=== PATIENT | female | born 1940 | race Caucasian/White ===

== ENCOUNTER → 2016-08-21 | Outpatient (CLI) | payer MEDICARE, BC ==
[~2016-08-21] MED LIST: PHEN100T82 PO; SULF1TAB24 PO
--- NOTE | 2016-08-21 08:28 | RAD ---
EXAM: Chest, 2 views. HISTORY: Congestion. COMPARISON: 12/04/2011. FINDINGS: Frontal and lateral views of the chest are obtained. There is stable mild increased interstitial opacity without elysia congestion. There is bilateral basilar atelectasis. The heart is upper normal in size. There is no effusion or pneumothorax. IMPRESSION: No acute pulmonary finding.
== END | disposition home or self-care (01) ==
LOC: DXRADRC 07:49
PROVIDERS: ATTEND Physician Assistant Medical
DX: J02.9 Acute pharyngitis, unspecified (principal); R09.89 Other specified symptoms and signs involving the circulatory and respiratory systems
CPT/HCPCS: 71020

== ENCOUNTER → 2017-07-18 | Outpatient (CLI) | payer MEDICARE, BC ==
[~2017-07-18] MED LIST changes: +REGADENOSON 0.4 MG/5 ML DISP.SYRIN. IV ONE
--- NOTE | 2017-07-18 13:49 | RAD ---
MR#: [id number] Date of Study: 07/18/2017 Ordering Physician: GINA LICONA Referring Physician: TEDDY BARNES Tech: RT Los (R) (N) APPROVED REPORT Test Type: Pharmacological Stress Nurse/Tech: Maribell Gutierres Test Indications: Palpatations, dyspnea Cardiac History: Possible ND in 2000 Resting Heart Rate: 56 bpm Resting Blood Pressure: 150/90mmHg Pretest Chest Pain: None Pharm. Details Pharmacologic stress testing was performed using 0.4mg per 5ml of regadenoson given intravenously ove r 7-10 seconds. POST EXERCISE Max HR: 101 bpm Max Blood Pressure: 160/90mmHg Blood Pressure response to exercise: Normal Heart Rate response to exercise: Normal Chest Pain: No. Arrhythmia: No. INTERPRETATION Stress EKG Conclusion: The resting EKG shows a sinus rhythm with nonspecific ST-T wave changes. The stress EKG shows no significant changes from baseline. No EKG evidence of stressed induced ischemia. Imaging Protocol IMAGE PROTOCOL: Rest Tc-99m/stress Tc-99m 1 day Rest: Stress: Viability: Radiopharm.Tc99m ZqnznikxcHc47e Sestamibi Gkfv37rEn 33mCi Img Date 07/18/2017 07/18/2017 Inj-Img [id number]. 45min. Rest Admin Site:IV - Left AntecubitalAdministrator: RT Los (R)(N) Stress Admin Site: IV - Left AntecubitalAdministrator: RT Los (R)(N) STRESS DATA End Diast. Vol.78.0mlAv. Heart Rate78.0bpm LVEDV index BSA1.0mlCardiac Output0.1L/min End Syst. Vol.14.0mlCO Index BSA5.0L/min LVESV index BSA0.0mlMyocardial Bylt863.0g Eject. Tmkvzijr88.0% Stress Rates Pk. Fill Rate3.50EDV/secLVtime Pk. Fill 218.84msec Pk. Empty Rate4.75ESV/secLVtime Pk. Hyvlx230.72msec 1/3 Pk. Fill1.49EDV/sec Stress Scores Regional WT0.00Summed WT1.00 Regional WM0.00Summed WM0.00 LV Perfusion The stress scans show no significant defects. The rest scans show no significant defects. Nuclear imaging shows no reversible ischemia or infarct. Wall Motion Normal left ventricular systolic function with an ejection fraction of greater than 70%. LV Perf. Quant 17 Seg. SSS1.00 17 Seg. SRS6.00 17 Seg. SDS0.00 Stress Defect Extent (% LAD)0.00Rest Defect Extent (% LAD)11.30Rev. Defect Extent (% LAD)0.00 Stress Defect Extent (% LCX) 0.00Rest Defect Extent (% LCX)0.00Rev. Defect Extent (% LCX)0.00 Stress Defect Extent (% RCA)0.00Rest Defect Extent (% RCA)2.20Rev. Defect Extent (% RCA)0.00 Stress Defect Extent (% VELVET)0.20Rest Defect Extent (% VELVET)7.60Rev. Defect Extent (% VELVET)0.00 Conclusion 1. No EKG evidence of stressed induced ischemia. 2. Nuclear imaging shows no reversible ischemia or infarct. 3. Normal left ventricular systolic function with an ejection fraction of greater than 70%. 4. Low risk Lexiscan nuclear stress test. Signed by : Ronni Garcia MD Electronically Approved : 07/18/2017 13:49:44
== END | disposition home or self-care (01) ==
LOC: NM 07:37
PROVIDERS: ATTEND Internal Medicine Cardiovascular Disease
DX: R06.09 Other forms of dyspnea (principal); R00.2 Palpitations; I10 Essential (primary) hypertension; E11.9 Type 2 diabetes mellitus without complications
CPT/HCPCS: 78452; 93017; 96374; 96375; 96376; A9500; J2785

== ENCOUNTER → 2017-07-24 | Outpatient (CLI) | payer MEDICARE, BC ==
[~2017-07-24] MED LIST changes: -REGADENOSON 0.4 MG/5 ML DISP.SYRIN. IV ONE
--- NOTE | 2017-07-24 16:56 | CARD ---
MR#: [id number] Date of Study: 07/24/2017 Ordering Physician: GINA LICONA, Referring Physician: GINA LICONA Tech: Kimberly Mondragon RDCS APPROVED REPORT EXAM: Two-dimensional and M-mode echocardiogram with Doppler and color Doppler. Other Information Quality : Good INDICATION Dyspnea 2D DIMENSIONS RVDd2.7 (2.9-3.5cm)Left Atrium(2D)3.7 (1.6-4.0cm) IVSd1.0 (0.7-1.1cm)Aortic Root(2D)2.8 (2.0-3.7cm) LVDd4.3 (3.9-5.9cm)LVOT Diameter2.0 (1.8-2.4cm) PWd1.0 (0.7-1.1cm)LVDs2.0 (2.5-4.0cm) FS (%) 30.0 %SV69.3 ml LVEF(%)60.0 (>50%) Aortic Valve AoV Peak Abelardo.115.4cm/sAoV VTI22.9cm AO Peak GR.5.3mmHgLVOT Peak Abelardo.118.1cm/s LVOT VTI 23.88cmAO Mean GR.3mmHg DIONI (VMAX)3.76aq3DZH (VTI)3.36cm2 Mitral Valve MV E Cgntizlc94.4cm/sMV DECEL TBGX335vd MV A Gdvohqpk02.4cm/sE/A Ratio0.8 Pulmonary Vein S1 Vxmhjdbu42.3cm/sD2 Bzohrqds33.8cm/s LEFT VENTRICLE The left ventricle is normal size. There is borderline concentric left ventricular hypertrophy. The l eft ventricular systolic function is normal. The Ejection Fraction is 55-60%. There is normal LV segm ental wall motion. Transmitral Doppler flow pattern is Grade I-abnormal relaxation pattern. RIGHT VENTRICLE The right ventricle is normal size. The right ventricular systolic function is normal. ATRIA The left atrium size is normal. The right atrium size is normal. The interatrial septum is intact wit h no evidence for an atrial septal defect or patent foramen ovale as noted on 2-D or Doppler imaging. AORTIC VALVE The aortic valve is calcified but opens well. Doppler and Color Flow revealed no significant aortic r egurgitation. There is no significant aortic valvular stenosis. MITRAL VALVE The mitral valve is normal in structure and function. There is no evidence of mitral valve prolapse. There is no mitral valve stenosis. Doppler and Color-flow revealed trace mitral regurgitation. TRICUSPID VALVE The tricuspid valve is normal in structure and function. Doppler and Color Flow revealed no tricuspid valve regurgitation noted. There is no tricuspid valve stenosis. PULMONIC VALVE The pulmonary valve is normal in structure and function. Doppler and Color Flow revealed no pulmonic valvular regurgitation. There is no pulmonic valvular stenosis. GREAT VESSELS The aortic root is normal in size. The ascending aorta is mildly dilated at 3.7 cm. The IVC is normal in size and collapses >50% with inspiration. PERICARDIAL EFFUSION There is no evidence of significant pericardial effusion. Critical Notification Critical Value: No <Conclusion> The left ventricle is normal size. The left ventricular systolic function is normal. The Ejection Fraction is 55-60%. There is borderline concentric left ventricular hypertrophy. There is no significant aortic valvular stenosis. Doppler and Color Flow revealed no significant aortic regurgitation. Doppler and Color-flow revealed trace mitral regurgitation. Doppler and Color Flow revealed no tricuspid valve regurgitation noted. The ascending aorta is mildly dilated at 3.7 cm. Signed by : Ronni Garcia MD Electronically Approved : 07/24/2017 16:55:22
== END | disposition home or self-care (01) ==
LOC: ECHO 13:32
PROVIDERS: ATTEND Internal Medicine Cardiovascular Disease
DX: R06.09 Other forms of dyspnea (principal)
CPT/HCPCS: 93306

== ENCOUNTER → 2017-09-24 | Outpatient (CLI) | payer MEDICARE, BC ==
--- NOTE | 2017-09-24 12:00 | RAD ---
Left lower extremity venous ultrasound, 09/24/2017 : History: Left leg pain Duplex evaluation including grayscale, color flow and spectral Doppler analysis was performed. The femoral and popliteal veins show no filling defects to suggest DVT. The visualized calf veins are unremarkable. An elongated fluid collection is present in the left popliteal fossa compatible with a Nye's cyst. It measures 4.3 x 2.7 x 0.9 cm. IMPRESSION: 1. There is no sonographic evidence of deep vein thrombosis in the left lower extremity. 2. Left popliteal cyst.
== END | disposition home or self-care (01) ==
LOC: PMG 08:43
PROVIDERS: ATTEND Physician Assistant Medical
DX: M71.22 Synovial cyst of popliteal space [Baker], left knee (principal)
CPT/HCPCS: 93971

== ENCOUNTER → 2017-12-04 | Outpatient (CLI) | payer MEDICARE, BC ==
--- NOTE | 2017-12-04 16:28 | RAD ---
PQRS Compliance Statement: One or more of the following individualized dose reduction techniques were utilized for this examination: 1. Automated exposure control 2. Adjustment of the mA and/or kV according to patient size 3. Use of iterative reconstruction technique CT ABDOMEN PELVIS WO CONTRAST Clinical Indication: LLQ abdomen pain x 1 month, patient fell September 2017 with posterior pelvic pain, patient states it feels like her tailbone is constantly sore. Hx Hysterectomy Comparison: CT abdomen and pelvis without contrast, November 03, 2013. Technique: Helical CT imaging of the abdomen and pelvis is performed without IV or oral contrast. Findings: Evaluation of solid organs and bowel is limited without oral and IV contrast, decreasing sensitivity for detection of pathology. Mild scarring or atelectasis in the posterior lower lobes bilaterally. Cardiac size normal. Tiny hiatal hernia. Calcified granulomas in the spleen. The liver, gallbladder, pancreas, adrenal glands, abdominal aorta caliber are normal. Moderate atherosclerotic calcification of the abdominal aorta. There is no hydronephrosis. Stomach unremarkable. No dilated small bowel. Moderate sigmoid colon diverticulosis. There is moderate stool in the colon. Appendix is not identified. No secondary signs of appendicitis. No abdominal adenopathy or free fluid. Urinary bladder is mostly decompressed accentuating the wall thickness. Uterus atrophic or surgically absent. No pelvic free fluid. Mild grade 1 retrolisthesis of L3 on L4 and L2 on L3 and L1 on L2. Vacuum disc phenomenon L4/L5. IMPRESSION: 1. Moderate sigmoid colon diverticulosis without diverticulitis. 2. Moderate colon stool volume. Correlate for constipation. 3. Urinary bladder is mostly decompressed accentuating the wall thickness. Suggest correlation with urinalysis to exclude cystitis. Electronically signed by: Rodo Harmon MD (12/04/2017 4:24 PM) [place] [id number]
== END | disposition home or self-care (01) ==
LOC: CT 14:28
PROVIDERS: ATTEND Physician Assistant Medical
DX: K57.30 Diverticulosis of large intestine without perforation or abscess without bleeding (principal); I70.0 Atherosclerosis of aorta; K44.9 Diaphragmatic hernia without obstruction or gangrene; D73.89 Other diseases of spleen
CPT/HCPCS: 74176

== ENCOUNTER → 2018-10-29 | Outpatient (CLI) | payer MEDICARE, BC ==
--- NOTE | 2018-10-29 12:43 | CARD ---
MR#: [id number] Date of Study: 10/29/2018 Ordering Physician: GINA LICONA, Referring Physician: GINA LICONA, Tech: Yohana Hebert APPROVED REPORT EXAM: Two-dimensional and M-mode echocardiogram with Doppler and color Doppler. Other Information Quality : AverageHR: 61bpm Rhythm : NSRTechnically limited study due to body habitus. INDICATION Atrial Fibrillation RISK FACTORS Hypertension Hyperlipidemia Diabetes 2D DIMENSIONS RVDd2.8 (2.9-3.5cm)Left Atrium(2D)3.8 (1.6-4.0cm) IVSd1.1 (0.7-1.1cm)Aortic Root(2D)2.8 (2.0-3.7cm) LVDd5.0 (3.9-5.9cm)LVOT Diameter2.0 (1.8-2.4cm) PWd1.1 (0.7-1.1cm)LVDs2.8 (2.5-4.0cm) FS (%) 43.0 %SV85.6 ml LVEF(%)73.9 (>50%) Aortic Valve AoV Peak Abelardo.110.6cm/sAoV VTI25.1cm AO Peak GR.4.9mmHgLVOT Peak Abelardo.87.7cm/s LVOT VTI 22.01cmAO Mean GR.2mmHg DIONI (VMAX)2.98rn1AFI (VTI)2.77cm2 Mitral Valve MV E Rgcoedcg93.5cm/sMV DECEL [id number] MV A Hltwahzg24.4cm/sE/A Ratio1.2 Pulmonary Valve PV Peak Qqjktmvt61.0cm/sPV Peak Grad.2mmHg Tricuspid Valve TR P. Eoilntld362sa/sRAP SGNEUARE9qqXq TR Peak Gr.19wyFwVBVR70xrSc LEFT VENTRICLE The left ventricle is normal size. There is borderline concentric left ventricular hypertrophy. The l eft ventricular systolic function is normal and the ejection fraction is within normal range. The Eje ction Fraction is >55%. There is grossly normal LV segmental wall motion. Technically difficult image s. The left ventricular diastolic function and filling is normal for age. RIGHT VENTRICLE The right ventricle is normal size. There is normal right ventricular wall thickness. The right ventr icular systolic function is normal. ATRIA The left atrium size is normal. The right atrium size is normal. The interatrial septum is intact wit h no evidence for an atrial septal defect or patent foramen ovale as noted on 2-D or Doppler imaging. AORTIC VALVE The aortic valve is grossly normal in structure and function. Doppler and Color Flow revealed no sign ificant aortic regurgitation. There is no significant aortic valvular stenosis. MITRAL VALVE The mitral valve is normal in structure and function. There is no evidence of mitral valve prolapse. There is no mitral valve stenosis. Doppler and Color-flow revealed trace mitral regurgitation. TRICUSPID VALVE The tricuspid valve is normal in structure and function. Doppler and Color Flow revealed no tricuspid valve regurgitation noted. There is no tricuspid valve stenosis. PULMONIC VALVE The pulmonic valve is not well visualized. Doppler and Color Flow revealed no pulmonic valvular regur gitation. There is no pulmonic valvular stenosis. GREAT VESSELS The aortic root is normal in size. The IVC is normal in size and collapses >50% with inspiration. PERICARDIAL EFFUSION There is no evidence of significant pericardial effusion. Critical Notification Critical Value: No <Conclusion> The left ventricular systolic function is normal and the ejection fraction is within normal range. Th e Ejection Fraction is >55%. There is grossly normal LV segmental wall motion. Technically difficult images. Signed by : Jarocho Navarro, Electronically Approved : 10/29/2018 12:42:52
== END | disposition home or self-care (01) ==
LOC: ECHO 08:23
PROVIDERS: ATTEND Internal Medicine Cardiovascular Disease
DX: I48.0 Paroxysmal atrial fibrillation (principal); I10 Essential (primary) hypertension; E78.5 Hyperlipidemia, unspecified; E11.9 Type 2 diabetes mellitus without complications
CPT/HCPCS: 93306

== ENCOUNTER → 2021-08-29 | Outpatient (CLI) | payer MEDICARE, BC ==
--- NOTE | 2021-08-29 16:59 | RAD ---
EXAMINATION: XR KNEE 3 VIEWS_RT CLINICAL HISTORY: ARTHRITIS, RIGHT KNEE PAIN. TECHNIQUE: XR KNEE 3 VIEWS_RT Number of Images/Views: 3 COMPARISON: None FINDINGS: Mild to moderate medial and minimal lateral compartment narrowing. Tricompartmental tiny marginal ost eophytes. No acute fracture. Small joint effusion. IMPRESSION: Ixtb-cr-oqqoktnn degenerative changes right knee medial compartment. Electronically signed by: Darrick Stiles DO (08/29/2021 4:57 PM) [id number]
== END ==
LOC: RAD 12:42
PROVIDERS: ATTEND Physician Assistant Medical
DX: M17.11 Unilateral primary osteoarthritis, right knee (principal); M25.461 Effusion, right knee; M25.861 Other specified joint disorders, right knee
CPT/HCPCS: 73562